=== PATIENT | female | born 1960 | race Caucasian/White ===

== ENCOUNTER 2018-03-30 18:24 | Emergency (ER) | payer OTHER ==
[~2018-03-30] VITALS: Ht 160 cm; Wt 148.4 kg
[2018-03-30 18:34] VITALS: BP 124/65
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
--- NOTE | 2018-03-30 19:15 | NUR ---
ASSUMMED CARE OF PT AT THIS TIME, PT LAYING IN BED FAMILY AT BEDSIDE.
--- NOTE | 2018-03-30 19:42 | NUR ---
US and LAB at bedside.
[2018-03-30] MEDS ORDERED: SULFAMETH/TRIMETH DS 800/160MG 1 TAB PO ONE (19:55)
[2018-03-30] MEDS ORDERED: CEPHALEXIN 500 MG CAP PO ONE (19:55)
[2018-03-30] MEDS ORDERED: HYDROcodone/APAP 5/325 MG 1 TAB TAB PO ONE (20:00)
[2018-03-30 20:10] LABS: BASOPHILS % (AUTO) 0.3 % (0.0-2.0); EOSINOPHILS # (AUTO) 0.2 K/uL (0-0.4); HEMATOCRIT 41.5 % (36-48); HEMOGLOBIN 13.6 g/dL (12.0-16.0); LYMPHOCYTES % (AUTO) 19.3 % (20.5-51.1); MEAN CORPUSCULAR HEMOGLOBIN 30 pg (27-31); MEAN CORPUSCULAR HGB CONC 33 g/dL (33-37); MEAN CORPUSCULAR VOLUME 91.5 fL (80-94); MONOCYTES # (AUTO) 1.1 K/uL (0.8-1.0); MONOCYTES % (AUTO) 10.1 % (1.7-9.3); NEUTROPHILS # (AUTO) 7.2 K/uL (1.8-7.7); NEUTROPHILS % (AUTO) 68.3 % (42.2-75.2); PLATELET COUNT (AUTO) 261 K/uL (140-450); RED BLOOD CELL COUNT(AUTO) 4.54 MIL/uL (4.20-5.40); RED CELL DISTRIBUTION WIDTH 13.7 % (11.6-13.7); WHITE BLOOD COUNT (AUTO) 10.5 K/uL (4.8-10.8)
[2018-03-30 21:09] LABS: ANION GAP 12.9 (8-16); CREATININE 0.9 mg/dL (0.6-1.3); POTASSIUM 3.9 mmol/L (3.5-5.1)
[2018-03-30 21:14] LABS: ALBUMIN 3.5 g/dL (3.4-5.0); TOTAL BILIRUBIN 0.7 mg/dL (0.0-1.0)
[2018-03-30 21:23] VITALS: BP 113/54
--- NOTE | 2018-03-30 21:23 | NUR ---
Patient discharged with v/s stable. Written and verbal after care instructions given and explained. Patient alert, oriented and verbalized understanding of instructions. Ambulatory with steady gait. All questions addressed prior to discharge. ID band removed. Patient advised to follow up with PMD. Rx of TRMADOL,KEFLEX,BACTRIM given. Patient educated on indication of medication including possible reaction and side effects. Opportunity to ask questions provided and answered.
== END 2018-03-30 21:24 | disposition home or self-care (01) ==
LOC: MED 18:24
DX: L03.115 Cellulitis of right lower limb (principal); M19.90 Unspecified osteoarthritis, unspecified site; Z88.0 Allergy status to penicillin
CPT/HCPCS: 36415; 80053; 83605; 85025; 87040; 93971; 99285; Q0092

== ENCOUNTER 2019-08-22 15:02 | Emergency (ER) | payer OTHER ==
[~2019-08-22] VITALS: Ht 160 cm; Wt 95.3 kg
[2019-08-22 15:15] VITALS: BP 98/45
--- NOTE | 2019-08-22 15:15 | NUR ---
PT AMBULATED TO BED
[2019-08-22 15:25] VITALS: BP 108/61
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
[2019-08-22] MEDS ORDERED: NACL 0.9% 1,000 ML IV SCH (16:11)
[2019-08-22] MEDS ORDERED: KETOROLAC 30 MG/ML VIAL IVP ONE (16:15)
[2019-08-22 16:43] LABS: APPEARANCE,URINE CLEAR (CLEAR); BILIRUBIN,URINE NEGATIVE (NEGATIVE); BLOOD, URINE NEGATIVE (NEGATIVE); COLOR,URINE YELLOW (YELLOW); LEUKOCYTE ESTERASE ,URINE 2+ (NEGATIVE); NITRITE, URINE NEGATIVE (NEGATIVE); PH,URINE 6.5 (5.0-9.0); UGLUCOSE NEGATIVE (NEGATIVE)
[2019-08-22 16:57] LABS: RBC,URINE NONE SEEN /HPF (0-5)
--- NOTE | 2019-08-22 17:10 | NUR ---
LAB AT BEDSIDE
--- NOTE | 2019-08-22 17:10 | NUR ---
TORADOL GIVEN AND FLUIDS STARTED
[2019-08-22 17:40] LABS: BASOPHILS # (AUTO) 0.1 K/uL (0.00-0.22); BASOPHILS % (AUTO) 0.8 % (0.0-2.0); EOSINOPHILS # (AUTO) 0.2 K/uL (0-0.4); EOSINOPHILS % (AUTO) 2.5 % (0.0-4.0); HEMATOCRIT 38.3 % (36-48); HEMOGLOBIN 12.8 g/dL (12.0-16.0); LYMPHOCYTES # (AUTO) 2.9 K/uL (2.5-16.5); LYMPHOCYTES % (AUTO) 42.9 % (20.5-51.1); MEAN CORPUSCULAR HEMOGLOBIN 31 pg (27-31); MEAN CORPUSCULAR HGB CONC 33 g/dL (33-37); MONOCYTES # (AUTO) 0.6 K/uL (0.8-1.0); MONOCYTES % (AUTO) 9.4 % (1.7-9.3); NEUTROPHILS % (AUTO) 44.4 % (42.2-75.2); PLATELET COUNT (AUTO) 206 K/uL (140-450); RED BLOOD CELL COUNT(AUTO) 4.16 MIL/uL (4.20-5.40); RED CELL DISTRIBUTION WIDTH 12.8 % (11.6-13.7); WHITE BLOOD COUNT (AUTO) 6.8 K/uL (4.8-10.8)
--- NOTE | 2019-08-22 17:40 | NUR ---
BLOOD DRAWN AND TAKEN TO LAB BY FULL TIME
[2019-08-22 18:03] LABS: ALBUMIN 3.1 g/dL (3.4-5.0); ANION GAP 12.9 (8-16); CARBON DIOXIDE 23.7 mmol/L (21-32); CREATININE 0.6 mg/dL (0.6-1.3); POTASSIUM 3.6 mmol/L (3.5-5.1); TOTAL BILIRUBIN 0.3 mg/dL (0.0-1.0)
--- NOTE | 2019-08-22 18:31 | NUR ---
PT TAKEN TO CT
--- NOTE | 2019-08-22 18:42 | NUR ---
PT BACK FROM CT
--- NOTE | 2019-08-22 19:05 | NUR ---
REPORT RECEIVED FROM ANAID THOMSON.
--- NOTE | 2019-08-22 19:05 | NUR ---
GAVE REPORT TO ANAID JENKINS AND TRANSFERRED CARE.
--- NOTE | 2019-08-22 20:37 | NUR ---
Dr. Flowers examining patient.
[2019-08-22 20:50] VITALS: BP 134/79
--- NOTE | 2019-08-22 20:51 | NUR ---
Patient discharged with v/s stable. Written and verbal after care instructions given and explained. Patient alert, oriented and verbalized understanding of instructions. Ambulatory with steady gait. All questions addressed prior to discharge. ID band removed. Patient advised to follow up with PMD. Rx of CIPRO; NORCO given. Patient educated on indication of medication including possible reaction and side effects. Opportunity to ask questions provided and answered.
== END 2019-08-22 20:51 | disposition home or self-care (01) ==
LOC: MED 15:02
DX: R10.13 Epigastric pain (principal); M25.561 Pain in right knee; M79.642 Pain in left hand; M79.641 Pain in right hand; N39.0 Urinary tract infection, site not specified; F32.9 Major depressive disorder, single episode, unspecified; Z98.0 Intestinal bypass and anastomosis status; Z98.890 Other specified postprocedural states; Z88.0 Allergy status to penicillin; Z88.6 Allergy status to analgesic agent
CPT/HCPCS: 36415; 71045; 74177; 80053; 81001; 83690; 85025; 87086; 96374; 99284; J1885; J7030; Q0092; Q9967

== ENCOUNTER 2020-04-05 12:49 | Emergency (ER) | payer OTHER, SELFPAY ==
[~2020-04-05] VITALS: Ht 165.1 cm; Wt 81.6 kg
[2020-04-05 13:14] VITALS: BP 98/53
--- NOTE | 2020-04-05 13:15 | NUR ---
60/F C/O SORE THROAT X 3 DAYS AND LOSS OF TASTE AND SMELL X3 DAYS AFTER TESTED POSITIVE FOR COVID 19. PT DENIES COUGH OR SOB. VSS.
--- NOTE | 2020-04-05 13:24 | NUR ---
dr grant at chairside evaluating pt.
--- NOTE | 2020-04-05 13:25 | NUR ---
covid swab collected
--- NOTE | 2020-04-05 13:38 | NUR ---
Patient discharged with v/s stable. Written and verbal after care instructions given and explained. Patient verbalized understanding. Ambulatory with steady gait. All questions addressed prior to discharge. Advised to follow up with PMD.
[2020-04-05 13:48] VITALS: BP 98/53
== END 2020-04-05 13:38 | disposition home or self-care (01) ==
LOC: MED 12:49
DX: J02.9 Acute pharyngitis, unspecified (principal); Z20.828 Contact with and (suspected) exposure to other viral communicable diseases; Z88.0 Allergy status to penicillin; Z88.6 Allergy status to analgesic agent
CPT/HCPCS: 99283; U0003

== ENCOUNTER 2021-11-26 02:53 | Observation (INO) | payer OTHER ==
[~2021-11-26] VITALS: Ht 160 cm; Wt 93.0 kg
[2021-11-26 03:00] VITALS: BP 157/86
[2021-11-26] MEDS ORDERED: ASPIRIN 325 MG TAB PO ONE (03:05)
[2021-11-26] MEDS ORDERED: NITROGLYCERIN 0.4 MG TAB SL ONE (03:05)
--- NOTE | 2021-11-26 03:09 | NUR ---
PT TAKEN TO BED 2
--- NOTE | 2021-11-26 03:15 | NUR ---
CXR at bedside.
--- NOTE | 2021-11-26 03:16 | NUR ---
61 YO/F PRESENTS TO ED W C/O L CHEST PAIN 03/29, HEAVY X3 HOURS AGO CONSTANT + L ARM PAIN HEAVY CONSTANT X1 DAY, +SOB. DENIES ANY FEVERS/CHILLS, N/V/D. PT LAYING IN BED W HOB ELEVATED, BED LOCKED IN LOWEST POSITION W X1 SIDERAIL UP. ERMD AT BEDSIDE ASSESSING PT. PMH: ANXIETY, ARTHRITIS ALLERGIES: PENICILLIN, IBUPROFEN Addendum: 11/26/21 at 0336 by THIAGO PT CONNECTED TO MONITOR. WILL CONTINUE TO MONITOR.
--- NOTE | 2021-11-26 03:16 | NUR ---
Dr. Slade at bedside to exam patient.
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
[2021-11-26 03:19] LABS: BASOPHILS % (AUTO) 0.5 % (0.0-2.0); EOSINOPHILS # (AUTO) 0.6 K/uL (0-0.4); EOSINOPHILS % (AUTO) 7.3 % (0.0-4.0); HEMATOCRIT 40.1 % (36-48); HEMOGLOBIN 13.6 g/dL (12.0-16.0); LYMPHOCYTES # (AUTO) 3.6 K/uL (2.5-16.5); MEAN CORPUSCULAR HEMOGLOBIN 31 pg (27-31); MEAN CORPUSCULAR HGB CONC 34 g/dL (33-37); MEAN CORPUSCULAR VOLUME 90.9 fL (80-94); MONOCYTES # (AUTO) 0.8 K/uL (0.8-1.0); MONOCYTES % (AUTO) 9.6 % (1.7-9.3); NEUTROPHILS # (AUTO) 3.6 K/uL (1.8-7.7); NEUTROPHILS % (AUTO) 41.6 % (42.2-75.2); PLATELET COUNT (AUTO) 261 K/uL (140-450); RED BLOOD CELL COUNT(AUTO) 4.41 MIL/uL (4.20-5.40); WHITE BLOOD COUNT (AUTO) 8.7 K/uL (4.8-10.8)
--- NOTE | 2021-11-26 03:32 | NUR ---
PT WAS GIVEN X3 NITROSTAT TABS AT THIS TIME FOR ONGOING CHEST PAIN. WILL CONTINUE TO MONITOR.
--- NOTE | 2021-11-26 03:42 | NUR ---
PT REPORTS CHEST PAIN HAS CALMED DOWN, BUT ARM PAIN ONGOING.
[2021-11-26] MEDS ORDERED: HYDROcodone/APAP 5/325 MG 1 TAB TAB PO ONE (03:55)
[2021-11-26 04:17] LABS: ALBUMIN 3.4 g/dL (3.4-5.0); ANION GAP 12.7 (8-16); ASPARTATE AMINOTRANSFERASE 19 U/L (15-37); CARBON DIOXIDE 26.1 mmol/L (21-32); CHLORIDE 107 mmol/L (98-107); CREATININE 0.7 mg/dL (0.6-1.3); GFR ARICAN-AMERICAN 109 mL/min (>90); GLUCOSE 96 mg/dL (74-106); POTASSIUM 3.8 mmol/L (3.5-5.1); SODIUM SERUM 142 mmol/L (136-145); TOTAL BILIRUBIN 0.3 mg/dL (0.0-1.0); UREA NITROGEN, BLOOD 19 mg/dL (7-18)
--- NOTE | 2021-11-26 04:56 | NUR ---
jack swab collected from pt nares and sent to lab.
--- NOTE | 2021-11-26 05:00 | NUR ---
pt reports improvement of chest pain, arm pain and sob. pt does not know the names of medications taken at home.
[2021-11-26] MEDS ORDERED: ONDANSETRON 4 MG/2 ML VIAL IVP PRN (05:20)
[2021-11-26] MEDS ORDERED: ACETAMINOPHEN 325 MG TAB PO PRN (05:20)
[2021-11-26] MEDS ORDERED: MAG SULF 2000 MG/WATER PREMIX 50 ML IV PRN (05:20)
[2021-11-26] MEDS ORDERED: KCL 20 MEQ/WATER INJ PREMIX 200 ML IV PRN (05:20)
[2021-11-26] MEDS ORDERED: POTASSIUM CHLORIDE 10 MEQ TABER PO PRN (05:20)
[2021-11-26] MEDS ORDERED: MAGNESIUM OXIDE 400 MG TAB PO PRN (05:20)
[2021-11-26] MEDS: NACL 0.9% 1,000 ML IV SCH ×2 (05:45→18:39)
--- NOTE | 2021-11-26 05:57 | NUR ---
Pt report given to ANAID DRAKE. Transfer of care at this time.
--- NOTE | 2021-11-26 06:05 | NUR ---
Patient will be admitted to care of . Admited to TELE. Will go to room 111A. Belongings list completed. Report to ANAID DRAKE.
--- NOTE | 2021-11-26 06:10 | NUR ---
PATIENT WAS BROUGHT TO THE UNIT FROM ER VIA RKAMRAN [id number] WITH CC: CHEST MANDY FOR 3 HOURS, ARM PAIN FOR 1 DAY AND SOB. NO S/S OF RESPIRATORY DISTRESS. BREATHING EVEN UNLABORED. SAFETY MEASURES IN PLACE. ORIENTED TO CALL LIGHT, ROOM AND STAFF. IVF NS INFUSING AT 80 ML/HR ON THE RIGHT HAND. MRSA SCREENING DONE SENT TO LAB. WILL CONTINUE TO MONITOR PT.
--- NOTE | 2021-11-26 07:26 | NUR ---
ENDORSED PT TO AM NURSE FOR CONTINUITY OF CARE.
--- NOTE | 2021-11-26 07:30 | NUR ---
RECEIVED REPORT FROM STAMP MAKER NURSE. PT. IS AOX4, ON ROOM AIR, AMBULATORY. PT IS NPO EXCEPT WITH SOME MEDS. IV SITE ON RIGHT HAND 22G, RUNNING AT 80ML/HR. SKIN IS INTACT. V/S STABLE. DISCUSSED PLAN OF CARE. ALL SAFETY MEASURES DONE. WILL CONTINUE TO MONITOR.
--- NOTE | 2021-11-26 08:13 | NUR ---
PT DAUGHTER CORDELIA CALLED, RELAYED PT CONDITION, TOLD DAUGHTER THAT STILL NEEDS TO THE SOME LAB WORKS FOR PT. INGRID UNDERSTOOD AND WILL CALL BACK AGAIN IN THE AFTERNOON.
[2021-11-26] MEDS: ENOXAPARIN 40 MG/0.4 ML SYR SUBQ SCH (10:11)
[2021-11-26] MEDS: HYDROcodone/APAP 5/325 MG 1 TAB TAB PO PRN ×2 (10:12→20:33)
--- NOTE | 2021-11-26 10:12 | NUR ---
GAVE NORCO TO PT, PT COMPLAINED OF PAIN ON LEFT ARM, WITH A PAINSCALE OF 6/10. WILL CONTINUE TO MONITOR.
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
[2021-11-26 11:33] VITALS: BP 118/64
--- NOTE | 2021-11-26 12:00 | NUR ---
PT IS AWAKE, LYING ON HER BED. PT NOT IN DISTRESS AT THIS TIME. WILL CONTINUE TO MONITOR.
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
--- NOTE | 2021-11-26 13:20 | NUR ---
PATIENT HAS BEEN SCREENED AND CATEGORIZED MODERATE NUTRITION RISK. PATIENT WILL BE SEEN WITHIN 3-5 DAYS OF ADMISSION. 11/30/21 REVIEWED BY PRESLEY OLEA RD
--- NOTE | 2021-11-26 14:15 | NUR ---
PT HAS LEFT ARM PAIN. ASKED IF SHE COULD HAVE SOME WARM COMPRESS. GAVE PT WARM COMPRESS AND PUT IT ON HER LEFT UPPER ARM. PT TOLERATED AND VERBALIZED THAT THE TEMPERATURE FOR THE WARM COMPRESS IS OKAY. WILL CONTINUE TO MONITOR.
[2021-11-26 14:30] VITALS: BP 108/48
--- NOTE | 2021-11-26 14:30 | NUR ---
RECHECKED PT BP- 108/48, P53. PT DENIES PAIN AT THIS TIME. WILL CONTINUE TO MONITOR.
--- NOTE | 2021-11-26 16:14 | NUR ---
PT BP WAS 120/46. DIASTOLE LOW, REPORTED TO DR. FORD.
[2021-11-26] MEDS: MORPHINE SULFATE 4 MG/ML SYR IVP PRN (16:48)
--- NOTE | 2021-11-26 16:48 | NUR ---
MORPHINE GIVEN TO PT PER DR'S ORDER. PT COMPLAINED OF LEFT ARM PAIN, WITH A PAIN SCALE OF 8/10. WILL CONTINUE TO MONITOR.
--- NOTE | 2021-11-26 19:15 | NUR ---
RECEIVED BEDSIDE REPORT FROM DAY RN. PT IS AAOX4.AMBULATORY W/ ASSIST AND ABLE TO MAKE NEEDS KNOWN. RESPIRATIONS ARE EQUAL AND UNLABORED ON ROOM AIR. PT OBSERVED RESTING IN BED NO DISTRESS NOTED. FAMILY AT BEDSIDE. IV ON R SALEH 22G IVF INFUSING PER ORDERS. SKIN IS WARM, DRY AND INTACT. POC REVIEWED WITH PATIENT AND FAMILY. SAFETY MEASURERS ARE IN PLACE. CALL LIGHT IS WITHIN REACH. WILL CONTINUE TO MONITOR.
--- NOTE | 2021-11-26 19:20 | NUR ---
GAVE REPORT TO CEPHALOMETRIC ANALYST NURSE. PT V/S STABLE. DISCUSSED PLAN OF CARE.
[2021-11-26 20:00] VITALS: BP 143/53
--- NOTE | 2021-11-26 20:33 | NUR ---
ASSISTED PATIENT TO BATHROOM. PRN NORCO GIVEN FOR L SHOULDER PAIN. ALL NEEDS MET. WILL CONTINUE TO MONITOR.
[2021-11-27] VITALS: BP 140/60
--- NOTE | 2021-11-27 | NUR ---
VITAL SIGNS ARE WITHIN NORMAL LIMITS. ALL SAFETY MEASURES ARE IN PLACE. WILL CONTINUE TO MONITOR
[2021-11-27] MEDS: HYDROcodone/APAP 5/325 MG 1 TAB TAB PO PRN ×3 (00:40→11:05)
--- NOTE | 2021-11-27 02:00 | NUR ---
PT OBSERVED RESTING IN BED WATCHING TV. ALL NEEDS MET. WILL CONTINUE TO MONITOR
[2021-11-27] MEDS: MORPHINE SULFATE 4 MG/ML SYR IVP PRN (03:47)
[2021-11-27 04:00] VITALS: BP 138/61
--- NOTE | 2021-11-27 04:00 | NUR ---
VITAL SIGNS ARE WITHIN NORMAL LIMITS. ALL SAFETY MEASURES ARE IN PLACE. WILL CONTINUE TO MONITOR.
[2021-11-27 05:27] LABS: BASOPHILS % (AUTO) 0.4 % (0.0-2.0); EOSINOPHILS # (AUTO) 0.2 K/uL (0-0.4); EOSINOPHILS % (AUTO) 2.8 % (0.0-4.0); HEMATOCRIT 36.2 % (36-48); HEMOGLOBIN 12.1 g/dL (12.0-16.0); LYMPHOCYTES # (AUTO) 2.2 K/uL (2.5-16.5); LYMPHOCYTES % (AUTO) 27.2 % (20.5-51.1); MEAN CORPUSCULAR HEMOGLOBIN 31 pg (27-31); MEAN CORPUSCULAR HGB CONC 34 g/dL (33-37); MEAN CORPUSCULAR VOLUME 92.2 fL (80-94); MONOCYTES % (AUTO) 12.7 % (1.7-9.3); NEUTROPHILS # (AUTO) 4.7 K/uL (1.8-7.7); NEUTROPHILS % (AUTO) 56.9 % (42.2-75.2); PLATELET COUNT (AUTO) 222 K/uL (140-450); RED BLOOD CELL COUNT(AUTO) 3.92 MIL/uL (4.20-5.40); WHITE BLOOD COUNT (AUTO) 8.2 K/uL (4.8-10.8)
[2021-11-27 05:53] LABS: ANION GAP 10.7 (8-16); CARBON DIOXIDE 27.7 mmol/L (21-32); CREATININE 0.5 mg/dL (0.6-1.3); POTASSIUM 4.4 mmol/L (3.5-5.1)
[2021-11-27] MEDS: NACL 0.9% 1,000 ML IV SCH (06:20)
--- NOTE | 2021-11-27 07:20 | NUR ---
BEDSIDE REPORT GIVEN TO DAY RN. PT ENDORSED IN STABLE CONDITION.
--- NOTE | 2021-11-27 07:21 | NUR ---
RECEIVED REPORT FROM ORTHOTICS TECHNICIAN NURSE FOR CONTINUITY OF CARE. PATIENT COMPLAINING OF LEFT SHOULDER PAIN WITH HOT COMPRESS ON. IV SITE ON RIGHT HAND SARAY 20 RUNNING WITH BNS AT 80 CC/HOUR. ALL SAFETY MEASURE IN PLACE. PATIENT ALERT ORIENTED X 4.
[2021-11-27 08:00] VITALS: BP 117/69
[2021-11-27] MEDS: ENOXAPARIN 40 MG/0.4 ML SYR SUBQ SCH (08:13)
--- NOTE | 2021-11-27 08:34 | NUR ---
PATIENT IS COMPLAINING OF PAIN ON LEFT SHOULDER. APPLIED HOT COMPRESS PER PATIENT REQUEST. LEFT MESSAGE TO DR. FORD IF WE CAN GET X RAY. WAITING FOR RESPONSE.
--- NOTE | 2021-11-27 10:48 | NUR ---
DR. FORD RESPONDED YES FOR X RAY INFORM PATIENT.
[2021-11-27 12:00] VITALS: BP 122/62
--- NOTE | 2021-11-27 13:19 | NUR ---
RADIOLOGY AT BED SIDE.
--- NOTE | 2021-11-27 13:56 | NUR ---
COMPLAIN OF PAIN MEDICATED ORDER ALSO SUGGESTED TO PATIENT INSTEAD OF HOT PACK IF SHE WANT TO TRY COLD PACK FOR HER SHOULDER AND SHE AGREED. COLD PACK GIVEN.
[2021-11-27 14:55] VITALS: BP 122/62
--- NOTE | 2021-11-27 15:30 | NUR ---
CHECKED PATIENT AND SHE VERBALIZED THAT THE COLD PACK AND TYLENOL HELP HER BETTER THAN THE STRONGER MEDICATION.
--- NOTE | 2021-11-27 15:52 | NUR ---
DISCHARGE PACKET WITH INSTRUCTION GIVEN TO PATIENT VERBALIZED UNDERSTANDING AND SIGNED.
[2021-11-27 16:00] VITALS: BP 102/57
--- NOTE | 2021-11-27 17:10 | NUR ---
PATIENT ALERT ON STABLE CONDITION. REMOVED IV WITH CATHETER INTACT AND NAME BAND REMOVED. WHEELED PATIENT TO FRONT TO THEIR PRIVATE VEHICLE. ALL BELONGING TAKEN BY PATIENT.
== END 2021-11-27 17:15 | disposition home or self-care (01) ==
LOC: MED 02:53 → MTU 05:21
PROVIDERS: ADMIT Hospitalist; ATTEND Hospitalist
DX: R07.89 Other chest pain (principal); Z20.822 Contact with and (suspected) exposure to COVID-19; I10 Essential (primary) hypertension; F41.8 Other specified anxiety disorders; Z87.891 Personal history of nicotine dependence; Z72.89 Other problems related to lifestyle; Z88.0 Allergy status to penicillin; Z79.899 Other long term (current) drug therapy
CPT/HCPCS: 36415; 71045; 73030; 73090; 73130; 80048; 80053; 84484; 85025; 87081; 87426; 93005; 93307; 96361; 96372; 96374; 96376; 99285; G0378; J1650; J2270; Q0092

== ENCOUNTER 2022-05-01 16:08 | Emergency (ER) | payer OTHER ==
[~2022-05-01] VITALS: Ht 160 cm; Wt 99.8 kg
[2022-05-01 16:12] VITALS: BP 105/60
[2022-05-01] MEDS ORDERED: KETOROLAC 60 MG/2 ML VIAL IM ONE (16:40)
[2022-05-01] MEDS ORDERED: DICYCLOMINE HCL LIQUID 20 MG, ALUMINUM HYD/MAG/SIMETHICONE 30 ML, LIDOCAINE VISCOUS 2% ... PO ONE ×3 (16:40)
[2022-05-01] MEDS ORDERED: DICYCLOMINE HCL LIQUID 10 MG/5 ML UDC ONE (16:45)
[2022-05-01] MEDS ORDERED: ALUMINUM HYD/MAG/SIMETHICONE 30 ML UDC ONE (16:45)
[2022-05-01] MEDS ORDERED: PRED20TA5 PO (17:25)
[2022-05-01] MEDS ORDERED: OMEP40EC23 PO (17:25)
[2022-05-01] MEDS ORDERED: ACET-8386 PO (17:25)
[2022-05-01 17:28] VITALS: BP 134/70
--- NOTE | 2022-05-01 17:28 | NUR ---
Patient discharged with v/s stable. Written and verbal after care instructions given and explained. Patient alert, oriented and verbalized understanding of instructions. Ambulatory with steady gait. All questions addressed prior to discharge. ID band removed. Patient advised to follow up with PMD. Rx of NORCO, PREDNISONE given. Patient educated on indication of medication including possible reaction and side effects. Opportunity to ask questions provided and answered.
== END 2022-05-01 17:28 | disposition home or self-care (01) ==
LOC: MED 16:08
DX: R10.13 Epigastric pain (principal); R07.89 Other chest pain; M79.10 Myalgia, unspecified site; R05.9 Cough, unspecified; Z88.0 Allergy status to penicillin; Z88.6 Allergy status to analgesic agent; Z98.890 Other specified postprocedural states; Z98.84 Bariatric surgery status
CPT/HCPCS: 81002; 93005; 96372; 99283; J1885

== ENCOUNTER 2024-05-11 03:15 | Emergency (ER) | payer OTHER ==
[~2024-05-11] VITALS: Ht 165.1 cm; Wt 113.9 kg
[~2024-05-11 03:15] MED LIST: ACET-8905 PO; OMEP40EC23 PO; PRED20TA5 PO
[2024-05-11 03:26] VITALS: BP 154/55; PULSE 54; RESP 18; TEMP 98.2; O2SAT 99
[2024-05-11 03:40] VITALS: BP 154/55; PULSE 54; RESP 18; TEMP 98.2; O2SAT 99
[2024-05-11 03:50] LABS: BASOPHILS % (AUTO) 0.7 % (0.0-2.0); EOSINOPHILS # (AUTO) 0.2 K/uL (0-0.4); EOSINOPHILS % (AUTO) 2.4 % (0.0-4.0); HEMATOCRIT 36.5 % (36-48); HEMOGLOBIN 12.1 g/dL (12.0-16.0); LYMPHOCYTES # (AUTO) 2.6 K/uL (2.5-16.5); LYMPHOCYTES % (AUTO) 40.6 % (20.5-51.1); MEAN CORPUSCULAR HEMOGLOBIN 30 pg (27-31); MEAN CORPUSCULAR HGB CONC 33 g/dL (33-37); MEAN CORPUSCULAR VOLUME 91.2 fL (80-94); MONOCYTES # (AUTO) 0.8 K/uL (0.8-1.0); MONOCYTES % (AUTO) 12.7 % (1.7-9.3); NEUTROPHILS # (AUTO) 2.8 K/uL (1.8-7.7); NEUTROPHILS % (AUTO) 43.6 % (42.2-75.2); PLATELET COUNT (AUTO) 211 K/uL (140-450); RED CELL DISTRIBUTION WIDTH 14.8 % (11.6-13.7); WHITE BLOOD COUNT (AUTO) 6.4 K/uL (4.8-10.8)
[2024-05-11 03:56] LABS: APPEARANCE,URINE CLEAR (CLEAR); BILIRUBIN,URINE NEGATIVE (NEGATIVE); BLOOD, URINE 1+ (NEGATIVE); COLOR,URINE YELLOW (YELLOW); LEUKOCYTE ESTERASE ,URINE 1+ (NEGATIVE); NITRITE, URINE NEGATIVE (NEGATIVE); PROTEIN,URINE NEGATIVE (NEGATIVE); UGLUCOSE NEGATIVE (NEGATIVE); UROBILINOGEN,URINE 0.2 EU/dL (0.2 - 1)
[2024-05-11] MEDS: ACETAMINOPHEN EXTRA STRENGTH 500 MG TAB PO ONE (03:59)
[2024-05-11 04:05] LABS: BACTERIA,URINE 10-30 (MOD) /HPF (None Seen); MUCUS,URINE 1+ /LPF (None Seen); SQUAMOUS EPITHELIAL CELL,UR 4-10 (MOD) /LPF (0-3 (FEW))
[2024-05-11 04:10] LABS: ANION GAP 9.4 (8-16); CALCIUM 8.3 mg/dL (8.5-10.1); CARBON DIOXIDE 30.6 mmol/L (21-32); CREATININE 0.8 mg/dL (0.6-1.3)
[2024-05-11 04:13] LABS: BILIRUBIN,DIRECT 0.1 mg/dL (0.0-0.3); TOTAL BILIRUBIN 0.4 mg/dL (0.0-1.0); TOTAL PROTEIN, SERUM 6.5 g/dL (6.4-8.2)
[2024-05-11] MEDS ORDERED: CYCL-711 PO (05:08)
[2024-05-11] MEDS ORDERED: ACET-8905 PO (05:08)
[2024-05-11] MEDS ORDERED: CEPH-588 PO (05:10)
== END 2024-05-11 05:19 | disposition home or self-care (01) ==
LOC: MED 03:15
DX: N39.0 Urinary tract infection, site not specified (principal); Z79.899 Other long term (current) drug therapy; Z88.0 Allergy status to penicillin; Z88.6 Allergy status to analgesic agent
CPT/HCPCS: 36415; 80048; 80076; 81001; 83690; 85025; 87086; 99284